=== PATIENT | male | born 1985 | race Caucasian/White ===

== ENCOUNTER 2022-05-01 19:57 | Emergency (ER) | payer BC ==
[2022-05-01] MEDS ORDERED: ACETAMINOPHEN 500 MG TAB ONE (20:26)
--- NOTE | 2022-05-01 21:03 | RAD REPORT ---
EXAM DESCRIPTION: RAD - Chest Single View - 05/01/2022 8:44 pm CLINICAL HISTORY: Congestion COMPARISON: none FINDINGS: Lines: None. Lungs: No evidence of edema or pneumonia. Pleural: No significant pleural effusions or pneumothorax. Cardiac: The heart size is within normal limits. Bones: No acute fractures. Other: IMPRESSION: No acute cardiopulmonary disease.
[2022-05-01 21:04] LABS: Absolute Lymphocytes (CBC) 1.8 K/uL (0.7-4.9); Hematocrit 43.1 % (39.6-49.0); Lymphocytes % 27.9 % (15.3-44.8); MCV 84.1 fL (80-100); MPV 6.4 fL (7.6-11.3); RBC Red Blood Cell Count 5.13 M/uL (4.33-5.43)
[2022-05-01 21:17] LABS: Albumin 4.4 g/dL (3.4-5.0); Bilirubin Total 0.5 mg/dL (0.2-1.0); Potassium 3.4 mmol/L (3.5-5.1); Protein, Total 8.2 g/dL (6.4-8.2); Protime INR 1.06
--- NOTE | 2022-05-01 22:13 | ER ---
Nurse's Notes [facility] Name: Yimi Man Age: 37 yrs Sex: Male : 1985 Arrival Date: 05/01/2022 Time: 20:01 Bed 19 Private MD: Diagnosis: Cough;Chest Congestion;SARS-associated coronavirus as the cause of diseases classified elsewhere Presentation: 05/01 20:09 Chief complaint: Went underwater while skiing yesterday, swallowed combs water and had a hb very difficult time catching his breath. Today feels like he is producing a lot of thin congestion and cough. Denies SOB. Coronavirus screen: At this time, the client does not indicate any symptoms associated with coronavirus-19. Ebola Screen: No symptoms or risks identified at this time. Initial Sepsis Screen: Does the patient meet any 2 criteria? No. Patient's initial sepsis screen is negative. Does the patient have a suspected source of infection? No. Patient's initial sepsis screen is negative. Risk Assessment: Do you want to hurt yourself or someone else? Patient reports no desire to harm self or others. Onset of symptoms was April 30, 2022. 20:09 Method Of Arrival: Ambulatory hb 20:09 Acuity: ANGELA 3 hb Triage Assessment: 20:11 General: Appears in no apparent distress. Behavior is calm, cooperative. Pain: Denies hb pain. EENT: No signs and/or symptoms were reported regarding the EENT system. Neuro: Level of Consciousness is awake, alert, obeys commands, Oriented to person, place, time, situation. Cardiovascular: Patient's skin is warm and dry. Respiratory: Respiratory effort is even, unlabored, Respiratory pattern is regular, symmetrical. GI: No signs and/or symptoms were reported involving the gastrointestinal system. : No signs and/or symptoms were reported regarding the genitourinary system. Derm: Skin is pink, warm \T\ dry. Musculoskeletal: No signs and/or symptoms reported regarding the musculoskeletal system. Historical: - Allergies: 20:11 No Known Allergies; hb - Home Meds: 20:11 testosterone IM [Active]; hb - PMHx: 20:11 None; hb - PSHx: 20:11 None; hb - Immunization history:: Adult Immunizations up to date. - Social history:: Smoking status: Patient denies any tobacco usage or history of. Screenin:12 Abuse screen: Denies threats or abuse. Denies injuries from another. Nutritional hb screening: No deficits noted. Tuberculosis screening: No symptoms or risk factors identified. Fall Risk None identified. Assessment: 20:12 General: See triage assessment. hb 21:53 Reassessment: Patient appears in no apparent distress at this time. Patient and/or hb family updated on plan of care and expected duration. Pain level reassessed. Patient is alert, oriented x 3, equal unlabored respirations, skin warm/dry/pink. Vital Signs: 20:09 BP 139 / 87; Pulse 102; Resp 20; Temp 99.2(TE); Pulse Ox 100% on R/A; Weight 133.81 kg; hb Height 5 ft. 11 in. (180.34 cm); Pain 0/10; 21:53 BP 134 / 71; Pulse 95; Resp 19; Pulse Ox 97% on R/A; hb 20:09 Body Mass Index 41.14 (133.81 kg, 180.34 cm) hb ED Course: 20:01 Patient arrived in ED. ja2 20:07 Torres Stewart MD is Attending Physician. kdr 20:09 Jada Dickens, RN is Primary Nurse. hb 20:11 Triage completed. hb 20:11 Arm band placed on. hb 20:12 Allergy band placed. hb 20:46 Chest Single View XRAY In Process Unspecified. EDMS 22:23 No provider procedures requiring assistance completed. IV discontinued, intact, ll3 bleeding controlled, No redness/swelling at site. Pressure dressing applied. Administered Medications: 20:49 Drug: Acetaminophen 1000 mg Route: PO; hb Medication: 20:12 VIS not applicable for this client. hb Outcome: 22:13 Discharge ordered by . kdr 22:23 Discharged to home ambulatory, with significant other. ll3 22:23 Condition: stable 22:23 Discharge instructions given to patient, significant other, Instructed on discharge instructions, follow up and referral plans. Demonstrated understanding of instructions, follow-up care. 22:23 Patient left the ED. ll3 Signatures: Dispatcher [employer] EDMS Torres Stewart MD MD kdr Jada Dickens, CATRACHITA RN Ratna Gray 2 Shanika Odonnell RN RN ll3
--- NOTE | 2022-05-01 22:14 | EDPHYS ---
Physician Documentation [facility] Name: Yimi Man Age: 37 yrs Sex: Male : 1985 Arrival Date: 05/01/2022 Time: 20:01 Bed 19 Private MD: ED Physician Torres Stewart Historical: - Allergies: 05/01 20:11 No Known Allergies; hb - Home Meds: 20:11 testosterone IM [Active]; hb - PMHx: 20:11 None; hb - PSHx: 20:11 None; hb - Immunization history:: Adult Immunizations up to date. - Social history:: Smoking status: Patient denies any tobacco usage or history of. Vital Signs: 20:09 BP 139 / 87; Pulse 102; Resp 20; Temp 99.2(TE); Pulse Ox 100% on R/A; Weight 133.81 kg; hb Height 5 ft. 11 in. (180.34 cm); Pain 0/10; 21:53 BP 134 / 71; Pulse 95; Resp 19; Pulse Ox 97% on R/A; hb 20:09 Body Mass Index 41.14 (133.81 kg, 180.34 cm) hb MDM: 22:13 Patient medically screened. [facility] 05/01 20:09 Order name: Blood Culture Adult (2) [facility] 05/01 20:09 Order name: CBC with Diff; Complete Time: 22:03 [facility] 05/01 20:09 Order name: CMP; Complete Time: 22:03 [facility] 05/01 20:09 Order name: Lactate; Complete Time: 22:03 [facility] 05/01 20:09 Order name: Protime (+inr); Complete Time: 22:03 [facility] 05/01 20:09 Order name: Ptt, Activated; Complete Time: 22:03 [facility] 05/01 20:09 Order name: Chest Single View XRAY; Complete Time: 22:03 [facility] 05/01 20:09 Order name: Accucheck; Complete Time: 20:49 [facility] 05/01 20:09 Order name: Cardiac monitoring; Complete Time: 20:34 [facility] 05/01 20:09 Order name: EKG - Nurse/Tech; Complete Time: 20:34 [facility] 05/01 20:09 Order name: IV Saline Lock - Large Bore; Complete Time: 20:49 [facility] 05/01 20:09 Order name: COVID-19 SARS RT PCR (Document "Date of Onset" if Symptomatic); Complete kdr Time: 22:05/01 20:09 Order name: Flu; Complete Time: 22: kdr 05/01 20:09 Order name: Labs collected and sent; Complete Time: 20:49 kdr 05/01 20:09 Order name: O2 Per Protocol; Complete Time: 20:49 kdr 05/01 20:09 Order name: O2 Sat Monitoring; Complete Time: 20:49 kdr Administered Medications: 20:49 Drug: Acetaminophen 1000 mg Route: PO; hb Disposition Summary: 05/01/22 22:13 Discharge Ordered Location: Home kdr Problem: new kdr Symptoms: have improved kdr Condition: Stable kdr Diagnosis - Cough kdr - Chest Congestion kdr - SARS-associated coronavirus as the cause of diseases classified elsewhere kdr Followup: kdr - With: Private Physician - When: 2 - 3 days - Reason: If symptoms return, Further diagnostic work-up, Recheck today's complaints, Continuance of care, Re-evaluation by your physician Discharge Instructions: - Discharge Summary Sheet kdr - Cough, Adult, [id number] kdr - COVID-19 kdr - 10 Things You Can Do to Manage Your COVID-19 Symptoms at Home - [facility] kdr - COVID-19: Quarantine vs. Isolation - [facility] kdr - Prevent the Spread of COVID-19 if You Are Sick - [facility] kdr Forms: - Medication Reconciliation Form kdr - Thank You Letter kdr Signatures: Dispatcher [employer] Torres Washington MD MD kdr Jada Dickens, RN RN hb
[2022-05-01 23:09] VITALS: TEMP 98.1; O2SAT 100
[2022-05-01 23:11] VITALS: BP 127/80
--- NOTE | 2022-05-02 12:21 | EKG ---
Test Date: 2022-05-01 Test Time: 20:24:41 Value Advisor: LL MEASUREMENT RESULTS: Intervals: Rate: 94 MT: 148 QRSD: 74 QT: 328 QTc: 410 [place]: P: 40 MT: 148 QRS: 36 T: 31 INTERPRETIVE STATEMENTS: Normal sinus rhythm Normal ECG No previous ECG available for comparison Electronically Signed On 05-02-22 12:19:57 CDT by David Chiang
== END 2022-05-01 22:23 | disposition home or self-care (01) ==
LOC: ER 19:57
DX: U07.1 COVID-19 (principal); R09.89 Other specified symptoms and signs involving the circulatory and respiratory systems
CPT/HCPCS: 93005; 87040 ×2; 85025; 36415; 85610; 83605; 85730; 80053; 87804 ×2; 71045; 99283; U0003